=== PATIENT | female | born 1965 | race Caucasian/White ===

== ENCOUNTER 2018-04-02 20:48 | Emergency (ER) | payer BC ==
[~2018-04-02] VITALS: Ht 162.6 cm; Wt 46.3 kg
--- NOTE | 2018-04-02 21:36 | NUR ---
Dr. Craft at bedside for MSE.
--- NOTE | 2018-04-02 21:51 | NUR ---
Ultrasound at bedside.
--- NOTE | 2018-04-02 22:12 | NUR ---
Xray at bedside.
--- NOTE | 2018-04-02 23:45 | NUR ---
Patient discharged to home in stable conditon. Written and verbal after care instructions given. Patient verbalizes understanding of instructions. Pt ambulated out of ER with steady gait, no acute signs of distress, VSS, all belongings taken. Pt provided with CD and imaging results.
[2018-04-02 23:46] VITALS: BP 150/87
== END 2018-04-02 23:46 | disposition home or self-care (01) ==
LOC: ER 20:50
DX: M71.22 Synovial cyst of popliteal space [Baker], left knee (principal); M13.862 Other specified arthritis, left knee; Z90.710 Acquired absence of both cervix and uterus
CPT/HCPCS: 73130; 73564; 73610; 93971; 99284; A4663